=== PATIENT | female | born 1960 | race Caucasian/White ===

== ENCOUNTER 2024-04-10 10:02 | Outpatient (CLI) | payer OTHER, SELFPAY ==
--- NOTE | 2024-04-10 10:15 | CRLHL7_ITS ---
For Patients: As a result of the Century Cures Act, medical imaging exams and procedure reports are released immediately into your electronic medical record. You may view this report before your referring provider. If you have questions, please contact your health care provider. BILATERAL SCREENING MAMMOGRAM WITH COMPUTER-AIDED DETECTION AND TOMOSYNTHESIS TECHNIQUE: CC and MLO views were obtained. These mammographic images have been obtained using full-field digital technique. These mammographic images were interpreted with the benefit of computer-aided detection. Breast Tomosynthesis was used in this interpretation. COMPARISON FILM: 03/03/23, 02/16/22, 01/12/21. FINDINGS: There are scattered areas of fibroglandular density. IMPRESSION: There is no radiographic evidence for malignancy. ASSESSMENT: BI-RADS Category 2: Benign RECOMMENDATION: Routine screening mammogram in 1 year. A lay language report of this examination will be provided to the patient. Ruddy Barnett M.D. Diagnostic Radiologist [email or web address] SP/Dictated by: Ruddy Barnett MD @ 04/16/2024 12:22:00 PM (Electronically Signed)
== END 2024-04-10 10:03 | disposition home or self-care (01) ==
LOC: MAMMO 10:03
PROVIDERS: PCP Family Medicine; Visit Provider Family Medicine
DX: Z12.31 Encounter for screening mammogram for malignant neoplasm of breast (principal)
CPT/HCPCS: 77063; 77067

== ENCOUNTER 2024-04-22 07:55 | Outpatient (CLI) | payer OTHER, SELFPAY | END 2024-04-22 07:56 | disposition home or self-care (01) | LOC: NFLDREF 14:58 | PROVIDERS: PCP Family Medicine; Referring Provider Family Medicine; Visit Provider Family Medicine | DX: E78.5 Hyperlipidemia, unspecified (principal); I10 Essential (primary) hypertension | CPT/HCPCS: 80053; 80061 ==

== ENCOUNTER 2025-05-09 08:35 | Outpatient (CLI) | payer OTHER, SELFPAY | END 2025-05-09 08:36 | disposition home or self-care (01) | LOC: NFLDREF 05-10 19:16 | PROVIDERS: PCP Family Medicine; Referring Provider Family Medicine; Visit Provider Family Medicine | DX: E78.5 Hyperlipidemia, unspecified (principal); I10 Essential (primary) hypertension | CPT/HCPCS: 80053; 80061 ==

== ENCOUNTER 2025-05-09 08:40 | Outpatient (CLI) | payer OTHER, SELFPAY ==
--- NOTE | 2025-05-09 09:15 | CRLHL7_ITS ---
For Patients: As a result of the Century Cures Act, medical imaging exams and procedure reports are released immediately into your electronic medical record. You may view this report before your referring provider. If you have questions, please contact your health care provider. INDICATION: BILATERAL SCREENING MAMMOGRAM, ASYMPTOMATIC 65 Y/O FEMALE COMPARISON: 04/10/2024, 03/03/2023, 02/16/2022 TECHNIQUE: Digital mammogram in CC and MLO projections including computer-aided detection (CAD) and tomosynthesis. BREAST COMPOSITION: There are scattered areas of fibroglandular density. FINDINGS: No suspicious findings. ASSESSMENT: BI-RADS 1 Negative RECOMMENDATION: Annual screening mammogram. A lay language report of this examination will be provided to the patient. Dictated by: Loren Ramírez MD @ 05/12/2025 21:22:12 (Electronically Signed)
== END 2025-05-09 08:41 | disposition home or self-care (01) ==
LOC: MAMMO 08:40
PROVIDERS: PCP Family Medicine; Visit Provider Family Medicine
DX: Z12.31 Encounter for screening mammogram for malignant neoplasm of breast (principal); E78.5 Hyperlipidemia, unspecified; I10 Essential (primary) hypertension
CPT/HCPCS: 77063; 77067; 80053; 80061

== ENCOUNTER 2025-06-30 07:55 | Outpatient (CLI) | payer OTHER, SELFPAY ==
--- NOTE | 2025-06-30 09:39 | P.ANES_ITS ---
Anesthesia Charges Start Date/Time Anesthesia Start Date: 06/30/25 Anesthesia Start Time: 09:03 Stop Date/Time Anesthesia Stop Date: 06/30/25 Anesthesia Stop Time: 09:37 Coding CPT Codes CPT Codes: CLEMENCIA LWR INTST NDSC NOS - [id number] ([id number]) P2 - PATIENT W/MILD SYST DISEASE, QK - JACQUARD TWINE POLISHER OPERATOR 2-4 CNCRNT ANES PROC, QX - CUSHION ASSEMBLER SVC W/ MD MED DIRECTION
--- NOTE | 2025-06-30 09:39 | W.ANESCHARGE ---
Anesthesia Charges Start Date/Time Anesthesia Start Date: 06/30/25 Anesthesia Start Time: 09:03 Stop Date/Time Anesthesia Stop Date: 06/30/25 Anesthesia Stop Time: 09:37 Coding CPT Codes CPT Codes: CLEMENCIA LWR INTST NDSC NOS - [id number] ([id number]) P2 - PATIENT W/MILD SYST DISEASE, QK - VOLUNTEER ASSISTANT 2-4 CNCRNT ANES PROC, QX - NURSE ESTHETICIAN SVC W/ MD MED DIRECTION
--- NOTE | 2025-06-30 09:46 | P.ANES_ITS ---
Anesthesia Charges Start Date/Time Anesthesia Start Date: 06/30/25 Anesthesia Start Time: 09:03 Stop Date/Time Anesthesia Stop Date: 06/30/25 Anesthesia Stop Time: 09:37 Coding CPT Codes CPT Codes: CLEMENCIA LWR INTST NDSC NOS - [id number] ([id number]) P2 - PATIENT W/MILD SYST DISEASE, QK - HOSPICE CONSULTANT 2-4 CNCRNT ANES PROC, QX - SKEINS YARN EXAMINER SVC W/ MD MED DIRECTION
--- NOTE | 2025-06-30 09:46 | W.ANESCHARGE ---
Anesthesia Charges Start Date/Time Anesthesia Start Date: 06/30/25 Anesthesia Start Time: 09:03 Stop Date/Time Anesthesia Stop Date: 06/30/25 Anesthesia Stop Time: 09:37 Coding CPT Codes CPT Codes: CLEMENCIA LWR INTST NDSC NOS - [id number] ([id number]) P2 - PATIENT W/MILD SYST DISEASE, QK - COOK HELPER MEAT 2-4 CNCRNT ANES PROC, QX - QC TECH SVC W/ MD MED DIRECTION
== END 2025-06-30 07:56 | disposition home or self-care (01) ==
LOC: OP CLINIC 07:56
PROVIDERS: PCP Family Medicine; Visit Provider Internal Medicine
DX: Z12.11 Encounter for screening for malignant neoplasm of colon (principal); D12.5 Benign neoplasm of sigmoid colon; R19.5 Other fecal abnormalities
CPT/HCPCS: 00811; 00812; 45385; 88305; J2704